=== PATIENT | female | born 1985 | race Two or more races ===

== ENCOUNTER → 2025-02-25 | Outpatient (CLI) | payer OTHER, SELFPAY ==
--- NOTE | 2025-02-25 | XR_ITS ---
Examination: Lumbar spine, 5 views Technique: Lumbar spine AP, lateral, coned lateral lower lumbar spine, bilateral obliques 5 views Exam date and time: February 25, 2025, 1218 hours INDICATIONS: Low back pain beginning 2 days ago after lifting heavy object. FINDINGS: Mild osteopenia. Mild diffuse facet arthropathy. No lumbar fracture. No significant lumbar disc narrowing No spondylolisthesis IMPRESSION: No lumbar fracture or significant disc narrowing
== END | disposition home or self-care (01) ==
PROVIDERS: PCP Physician Assistant; Referring Provider Physician Assistant; Visit Provider Physician Assistant
DX: S39.012A Strain of muscle, fascia and tendon of lower back, initial encounter (principal); X58.XXXA Exposure to other specified factors, initial encounter
CPT/HCPCS: 72110